=== PATIENT | female | born 1970 | race Caucasian/White ===

== ENCOUNTER 2018-05-12 22:40 | Emergency (ER) | payer OTHER ==
[~2018-05-12] VITALS: Ht 154.9 cm; Wt 64.0 kg
[2018-05-12] MEDS ORDERED: KETOROLAC 30MG/ML VIAL IV STA (23:11)
[2018-05-13 00:53] LABS: BASOPHILS % 0.3 % (0.0-2.0); EOSINOPHILS % 0.7 % (0.0-5.0); HEMATOCRIT. 37.2 % (36.0-48.0); HEMOGLOBIN. 12.6 g/dL (12.0-16.0); LYMPHOCYTES % 32.4 % (20.0-50.0); MEAN CORPUSCULAR HEMOGLOBIN 31.6 pg (28.0-32.0); MEAN CORPUSCULAR VOLUME 93.6 fL (81.0-99.0); MEAN PLATELET VOLUME 8.1 fl (7.4-10.4); MONOCYTES % 4.5 % (2.0-8.0); NEUTROPHILS % 62.1 % (40.0-76.0); PLATELET 347 x1000/uL (130-400); RED BLOOD CELL COUNT 3.97 mill/uL (4.2-5.4); RED CELL DISTRIBUTION WIDTH 13.4 % (11.6-14.6)
[2018-05-13 01:00] LABS: CHLORIDE 101 mEq/L (98-107)
[2018-05-13 01:05] LABS: PARTIAL THROMBOPLASTIN TIME 26.3 sec (23.4-31.0); PROTHROMBIN TIME 10.1 sec (9.1-11.1)
[2018-05-13 01:44] LABS: CLARITY URINE CLOUDY (CLEAR); COLOR URINE YELLOW (YELLOW); KETONES URINE NEGATIVE (NEGATIVE); LEUKOCYTE ESTERASE URINE 2+ (NEGATIVE); NITRITE URINE NEGATIVE (NEGATIVE); OCCULT BLOOD URINE 1+ (NEGATIVE); PROTEIN URINE NEGATIVE (NEGATIVE); SPECIFIC GRAVITY URINE 1.007 (1.005-1.030); UROBILINOGEN URINE 0.2 E.U./dL (0.2-1.0)
[2018-05-13] MEDS ORDERED: MECLIZINE 25MG TABLET PO NR (02:45)
[2018-05-13] MEDS ORDERED: CEFTRIAXONE 1 G PREMIX 50 ML IV NR (03:00)
[2018-05-13 05:55] VITALS: BP 129/84
== END 2018-05-13 06:44 | disposition home or self-care (01) ==
LOC: ER 23:05 → CANBEDREQ 05-13 06:32 → ER 05-13 06:44
DX: R42 Dizziness and giddiness (principal); E11.9 Type 2 diabetes mellitus without complications
CPT/HCPCS: 36415; 71045; 80053; 81003; 81025; 83880; 84484; 85025; 85610; 85730; 93005; 96365; 96375; 99285; J0696; J1885; Z7610; J8597